=== PATIENT | male | born 1960 | race Caucasian/White ===

== ENCOUNTER → 2018-07-20 12:34 | Outpatient (CLI) | payer OTHER, SELFPAY ==
--- NOTE | 2018-07-20 | DI.ECHO.S_ITS ---
[place] +---------+ [facility] +---------+ : : [address] : [address] : : : : [id number] : : : : Phone: [phone]+ Echocardiogram Report + + :Name: MONICA FUNES Study Date: 07/20/2018 Height: 76 in : :[facility] Weight: 250 lb : : Gender: Male BSA: 2.4 m2 : :: 1960 Age: 58 yrs BP: 140/80 mmHg: :Reason For Study: AFIB : :Ordering Physician: Dr. Ruvalcaba : :Jammie Performed By: Jeri Fernandez : :Referring: Nohelia SIGALA : + + Interpretation Summary The left ventricle is mildly dilated. The ejection fraction is estimated to be 60-65%. The right ventricle is normal size. The right ventricular systolic function is normal. There is mild mitral regurgitation. The aortic root is mildly dilated. The IVC is of normal diameter and collapses greater than 50% with a sniff. This suggests a low right atrial pressure of 3 mm Hg. Procedure: A two-dimensional transthoracic echocardiogram with color flow and Doppler was performed. The study quality was technically adequate. Comparison is made with the echocardiogram of 01/25/2007. The heart rate ranged between 63-73 bpm during the study. The patient was in normal sinus rhythm during the exam. Left Ventricle: There is normal left ventricular wall thickness. The left ventricle is mildly dilated. There is no thrombus. The ejection fraction is estimated to be 60-65%. There are no focal wall motion abnormalities. Diastolic parameters suggest probable normal left ventricular diastolic function and normal filling pressures. Right Ventricle: The right ventricle is normal size. The right ventricular systolic function is normal. Atria: There is moderate biatrial enlargement. There is no Doppler evidence for an interatrial shunt. Mitral Valve: The mitral valve is normal. There is mild mitral regurgitation. There is an eccentric jet of mitral regurgitation that is directed posteriorly. Aortic Valve: The aortic valve is normal in structure and function. There is no aortic valve stenosis. No aortic regurgitation is present. Tricuspid Valve: The tricuspid valve is normal in structure and function. The right ventricular systolic pressure is estimated to be at least at least 18 mmHg based on an estimated right atrial pressure of 3 mm Hg. There is trace tricuspid regurgitation. Pulmonic Valve: The pulmonic valve is normal in structure and function. There is trace pulmonic regurgitation. Great Vessels: The aortic root is mildly dilated. The ascending aorta is normal in size. The aortic arch is normal in size. The pulmonary artery is normal size. The IVC is of normal diameter and collapses greater than 50% with a sniff. This suggests a low right atrial pressure of 3 mm Hg. Pericardium/ Pleura There is no pericardial effusion. There is no pleural effusion. MMode/2D Measurements & Calculations LVIDd: 5.8 cm LVOT diam: 2.6 cm LVIDs: 3.6 cm Ao root diam: 4.2 cm FS: 36.8 % asc Aorta Diam: 3.5 cm IVSd: 0.87 cm Ao Arch Diam (Prox Trans): 3.0 cm LVPWd: 0.84 cm LV hernandez. diameter/BSA (cm/m^2): 2.4 LV sys. diameter/BSA (cm/m^2): 1.5 LA A2 area: 30.9 cm2 RA long axis: 7.1 cm LA A4 area: 30.6 cm2 RA area: 31.5 cm2 LA length (vol): 6.8 cm RA vol: 119.2 ml LA vol: 118.8 ml RA : 48.9 ml/m2 LA vol index: 48.8 ml/m2 IVC diam: 1.8 cm RVD1 (basal): 4.6 cm LVAd ap4: 43.9 cm2 TAPSE: 3.4 cm LVAs ap4: 26.4 cm2 LVLs ap4: 7.9 cm Doppler Measurements & Calculations Ao V2 max: 177.3 cm/sec LVOT Max Brandon: 150.1 cm/sec Ao V2 mean: 125.7 cm/sec LV V1 max P.0 mmHg Ao max P.6 mmHg LV V1 VTI: 30.1 cm Ao mean P.0 mmHg GEOVANNY(I,D): 4.2 cm2 Ao V2 VTI: 36.9 cm GEOVANNY(V,D): 4.3 cm2 sev ratio: 0.81 GEOVANNY indexed to BSA (cm^2/m^2): 1.7 MV E max brandon: 81.0 cm/sec TR max brandon: 194.1 cm/sec MV A max brandon: 66.8 cm/sec TR max P.1 mmHg MV E/A: 1.2 Med Peak E' Brandon: 10.2 cm/sec E/E' med: 7.9 Lat Peak E' Brandon: 11.2 cm/sec E/E' lat: 7.2 E/e' average: 7.6 MV dec time: 0.22 sec Reading Physician:MARC
== END ==
PROVIDERS: PCP Family Medicine Geriatric Medicine; Visit Provider Family Medicine Geriatric Medicine
DX: I34.0 Nonrheumatic mitral (valve) insufficiency (principal); I48.0 Paroxysmal atrial fibrillation
CPT/HCPCS: 93306

== ENCOUNTER → 2019-07-30 14:28 | Outpatient (CLI) | payer OTHER, SELFPAY ==
--- NOTE | 2019-07-30 | DI.ECHO.S_ITS ---
[place] +---------+ [facility] +---------+ : : [address] : : : : [id number] : : : : Phone: [phone] +[phone]+ Echocardiogram Report + + :Name: MONICA FUNES Study Date: 07/30/2019 Height: 76 in : :[facility] Weight: 250 lb : : Gender: Male BSA: 2.4 m2 : :: 1960 Age: 59 yrs BP: 136/82 mmHg: :Reason For Study: H/O Afib : : Performed By: [facility] Staff : :Referring: Nohelia SIGALA : + + Interpretation Summary The left ventricle is normal in size, wall thickness, and systolic function without any focal wall motion abnormalities with the ejection fraction visually estimated to be 60-65%. Diastolic parameters suggest probable normal left ventricular diastolic function and normal filling pressures. There has been no significant change from the previous study. The right ventricle is normal in size and function and is unchanged compared to the previous study. Pulmonary artery pressures cannot be estimated because of the lack of a measurable TR jet velocity but the IVC suggests a CVP of around 3 mmHg. The left atrium is severely dilated but is unchanged compared to the previous study. The right atrium is normal in size and is significantly smaller compared to the previous study. There is mild mitral regurgitation that is unchanged compared to the previous study. There is no other significant valvular heart disease. The ascending aorta is at the upper limits of normal in size and is larger compared to the previous study. The patient was in normal sinus rhythm between 55-65 bpm during the study. Procedure: A two-dimensional transthoracic echocardiogram with color flow and Doppler was performed. The study quality was technically adequate. Prior echo performed on 07/20/18. The patient was in normal sinus rhythm during the exam. The heart rate ranged between 55-65 bpm during the study. Left Ventricle: The left ventricle is normal in size, wall thickness, and systolic function without any focal wall motion abnormalities. The ejection fraction is estimated to be 60-65%. Diastolic parameters suggest probable normal left ventricular diastolic function and normal filling pressures. Right Ventricle: The right ventricle is normal in size and function. This is unchanged compared to the previous study. Atria: The left atrium is severely dilated. This is unchanged compared to the previous study. The right atrium is normal in size. This is significantly smaller compared to the previous study. The interatrial septum is intact with no evidence for an atrial septal defect. Mitral Valve: The mitral valve is normal in structure and function. There is mild mitral regurgitation. This is unchanged compared to the previous study. Aortic Valve: The aortic valve is trileaflet. The aortic valve opens well. No aortic regurgitation is present. Tricuspid Valve: The tricuspid valve is normal in structure and function. There is trace tricuspid regurgitation. Pulmonary artery pressures cannot be estimated because of the lack of a measurable TR jet velocity but the IVC suggests a CVP of around 3 mmHg. Pulmonic Valve: The pulmonic valve is not well visualized. There is trace pulmonic regurgitation. There is no other significant valvular heart disease. Great Vessels: The aortic root is borderline dilated. The ascending aorta is at the upper limits of normal in size. This is larger compared to the previous study. The pulmonary artery is normal size. The IVC is of normal diameter and collapses greater than 50% with a sniff. This suggests a low right atrial pressure of 3 mm Hg. Pericardium/ Pleura There is no pericardial effusion. There is no pleural effusion. MMode/2D Measurements & Calculations LVIDd: 5.2 cm LVOT diam: 2.4 cm LVIDs: 3.5 cm Ao root diam: 3.7 cm FS: 33.1 % asc Aorta Diam: 3.8 cm EPSS: 0.36 cm IVSd: 1.2 cm LVPWd: 1.1 cm LV hernandez. diameter/BSA (cm/m^2): 2.1 LV sys. diameter/BSA (cm/m^2): 1.4 LA A2 area: 31.3 cm2 RA long axis: 6.6 cm LA A4 area: 29.6 cm2 RA area: 22.4 cm2 LA length (vol): 6.1 cm RA vol: 64.6 ml LA vol: 129.3 ml RA : 26.5 ml/m2 LA vol index: 53.1 ml/m2 TAPSE: 3.0 cm Doppler Measurements & Calculations Ao V2 max: 137.9 cm/sec LVOT Max Brandon: 123.5 cm/sec Ao V2 mean: 93.6 cm/sec LV V1 max P.1 mmHg Ao max P.6 mmHg LV V1 VTI: 27.8 cm Ao mean P.0 mmHg GEOVANNY(I,D): 4.8 cm2 Ao V2 VTI: 27.0 cm GEOVANNY(V,D): 4.2 cm2 sev ratio: 1.0 GEOVANNY indexed to BSA (cm^2/m^2): 2.0 MV E max brandon: 66.0 cm/sec PA V2 max: 88.3 cm/sec MV A max brandon: 64.3 cm/sec PA V2 mean: 62.4 cm/sec MV E/A: 1.0 PA mean P.8 mmHg Med Peak E' Brandon: 10.9 cm/sec PA Accel Time: 0.16 sec E/E' med: 6.0 Lat Peak E' Brandon: 10.3 cm/sec E/E' lat: 6.4 E/e' average: 6.2 MV dec time: 0.32 sec SV(LVOT): 128.7 ml Reading Physician:ROBERT
== END ==
PROVIDERS: PCP Family Medicine Geriatric Medicine; Visit Provider Family Medicine Geriatric Medicine
DX: I34.0 Nonrheumatic mitral (valve) insufficiency (principal); I48.0 Paroxysmal atrial fibrillation
CPT/HCPCS: 93306